=== PATIENT | male | born 1995 | race African-American/Black ===

== ENCOUNTER 2016-10-29 13:14 | Emergency (ER) | payer SELFPAY ==
[~2016-10-29] VITALS: Ht 175.3 cm; Wt 71.7 kg
[2016-10-29] MEDS ORDERED: MORPHINE SULFATE 4 MG/ML SYRG IV ONE (14:00)
[2016-10-29] MEDS ORDERED: ONDANSETRON HCL 4 MG/2 ML VIAL IV ONE (14:00)
[2016-10-29] MEDS ORDERED: ETOMIDATE (2MG/ML) 20ML VIAL IV ONE ×2 (15:30→16:30)
[2016-10-29 17:39] VITALS: BP 123/80
== END 2016-10-29 17:56 | disposition home or self-care (01) ==
LOC: ER 13:21
DX: S53.125A Posterior dislocation of left ulnohumeral joint, initial encounter (principal); Y08.89XA Assault by other specified means, initial encounter; Y93.89 Activity, other specified; Y92.89 Other specified places as the place of occurrence of the external cause; Y99.8 Other external cause status
CPT/HCPCS: 24600; 73070; 73080; 96374; 96375; 99152; 99153; 99285; J2270; J2405